=== PATIENT | female | born 1985 | race African-American/Black ===

== ENCOUNTER 2018-02-01 07:26 | Emergency (ER) | payer OTHER ==
[~2018-02-01] VITALS: Ht 167.6 cm; Wt 53.1 kg
[~2018-02-01 07:26] MED LIST: BLISOVI 24 FE1 EACH PO; DIFLUCAN150 M1 PO; IBU600 MG PO
[2018-02-01 07:38] VITALS: BP 111/73
[2018-02-01] MEDS ORDERED: IBUPROFEN800 M1 PO (08:21)
--- NOTE | 2018-02-01 08:22 | ED ANIMAL BITE/WOUND CHECK ---
See Addendum History of Present Illness General Chief Complaint: Animal/Insect Bite Stated Complaint: INSECT BITE TO TOP OF LEFT FOOT Source: patient Exam Limitations: no limitations Vital Signs & Intake/Output Vital Signs & Intake/Output Vital Signs Date Time Temp Pulse Resp B/P B/P Pulse O2 O2 Flow FiO2 Mean Ox Delivery Rate 02/01 0738 98.1 87 19 111/73 100 Room Air Allergies Coded Allergies: [place] And Derivatives (ANAPHYLAXIS 06/19/16) iodine (INTERNAL ITCHING 06/19/16) Reconcile Medications Ibuprofen 800 MG TABLET 1 TAB PO TID PAIN Norethindrone-E.estradiol-Iron (Blisovi 24 Fe Tablet) 1 MG-20 MCG (24)/75 MG (4) TABLET 1 TAB PO DAILY CONTROL (Reported) Triage Note: PT STATES SHE WAS BIT BY A CENTIPEDE THIS AM AND THE TOP PART OF HER LEFT FOOT IS STILL BURNING. Triage Nurses Notes Reviewed? yes Onset: Abrupt Duration: hour(s): Timing: single episode today : No Patient currently breastfeeds: No HPI: 32-year-old female comes into the emergency room with insect bite to left foot. Patient reports that a centipede bit her on her left foot. Happened this morning. She was experiencing sharp throbbing pain. Radiates up the leg. (Howie Clifton) Past History Travel History Traveled to [place] past 21 day No Medical History Any Pertinent Medical History? see below for history Neurological: NONE EENT: NONE Cardiovascular: PALPITATIONS Respiratory: NONE Gastrointestinal: NONE Hepatic: NONE Renal: NONE Musculoskeletal: NONE Psychiatric: NONE Endocrine: NONE Blood Disorders: NONE Cancer(s): NONE GEOSPATIAL DEVELOPER/Reproductive: NONE Surgical History Surgical History: termination of Psychosocial History What is your primary language Liberian Tobacco Use: Never used ETOH Use: denies use Illicit Drug Use: denies illicit drug use Family History Hx Contributory? No (Howie Clifton) Review of Systems Review of Systems Constitutional: Reports: no symptoms. EENTM: Reports: no symptoms. Respiratory: Reports: no symptoms. Cardiovascular: Reports: no symptoms. GI: Reports: no symptoms. Genitourinary: Reports: no symptoms. Musculoskeletal: Reports: see HPI. Skin: Reports: see HPI. Neurological/Psychological: Reports: no symptoms. Hematologic/Endocrine: Reports: no symptoms. Immunologic/Allergic: Reports: no symptoms. All Other Systems: Reviewed and Negative (Howie Clifton) Physical Exam Physical Exam General Appearance: well developed/nourished, mild distress Head: atraumatic Eyes: Bilateral: normal appearance. Ears, Nose, Throat: normal ENT inspection, hearing grossly normal Neck: normal inspection Respiratory: no respiratory distress Back: normal inspection Extremities: Normal inspection of left foot, no bites appreciated, no swelling, no erythema, results pedis pulse intact, tenderness over the metatarsal area, full range of motion Neurologic/Psych: awake, alert, oriented x 3, normal mood/affect Skin: intact, normal color, warm/dry (Howie Clifton) Progress Differential Diagnosis: abscess, cellulitis, joint infection, tenosysnovitis Plan of Care: 02/01/2018 8:40:42 AM Patient clinically looks well. Patient is in no apparent distress. Patient is nontoxic-appearing. Patient resting comfortably in room. There is no evidence of acute infection or trauma. (Howie Clifton) Departure Departure Disposition: HOME OR SELF CARE Condition: Stable Clinical Impression Primary Impression: Insect bite Referrals: Holley TEJADA,Ryley Del Toro (PCP/Family) Additional Instructions: Take ibuprofen for pain. Follow-up with primary care doctor. Return if any concerns worsening symptoms. Please go over all results of today's visit with your primary care doctor. Contact your primary care doctor to let them know you were here in the emergency room. There may be nonspecific findings which may not be related to your visit today here in the emergency room but may require further evaluation and chronic monitoring by your primary care doctor. If you had a laceration today the chance of foreign body always remains. You should follow-up with your primary care doctor for recheck in 3-5 days for a wound check. If you had an x-ray done there is a chance that a fracture could have been missed on initial read and you should follow-up with your primary care doctor for repeat x-rays if symptoms persist. If your blood pressure was elevated here in the emergency room please have rechecked by [facility] primary care doctor within the next 48. If you were prescribed a narcotic here in the emergency room or any type of controlled substances you're not allowed to drive while taking this medication or operate any type of heavy machinery. Narcotics can make you feel lightheaded dizziness nausea and can cause constipation. You may need to orange picking supervisor a stool softener. Thank you for choosing [facility] emergency room. Please return to the emergency room immediately if you have any other concerns worsening of symptoms. Departure Forms: Customer Survey General Discharge Information Prescriptions: Current Visit Scripts Ibuprofen 1 TAB PO TID #30 TAB (Howie Clifton) PA/ENTERTAINMENT PRODUCTION PROFESSIONAL Co-Sign Statement Statement: ED Attending supervision documentation- I saw and evaluated the patient. I have also reviewed all the pertinent lab results and diagnostic results. I agree with the findings and the plan of care as documented in the PA's/ENTERTAINMENT PRODUCTION PROFESSIONAL's documentation. x I have reviewed the ED Record and agree with the PA's/ENTERTAINMENT PRODUCTION PROFESSIONAL's documentation. [] Additions or exceptions (if any) to the PAs/ENTERTAINMENT PRODUCTION PROFESSIONAL's note and plan are summarized below: [] (Ericka TEJADA,Nomi)
== END 2018-02-01 08:35 ==
LOC: ERH 07:26
DX: S90.862A Insect bite (nonvenomous), left foot, initial encounter (principal); W57.XXXA Bitten or stung by nonvenomous insect and other nonvenomous arthropods, initial encounter